=== PATIENT | female | born 2000 | race African-American/Black ===

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

== ENCOUNTER 2021-12-18 17:50 | Emergency (ER) | payer OTHER | END 2021-12-18 18:36 | disposition left against medical advice (07) | LOC: MADERS 17:50 | DX: Z53.21 Procedure and treatment not carried out due to patient leaving prior to being seen by health care provider (principal) ==

== ENCOUNTER 2021-12-19 09:07 | Emergency (ER) | payer OTHER ==
[2021-12-19] MEDS ORDERED: Ibuprofen 800 MG TAB ONE (09:51)
[2021-12-19] MEDS ORDERED: Dexamethasone 4 MG TAB ONE (09:51)
== END 2021-12-19 11:07 | disposition home or self-care (01) ==
LOC: MADERS 09:07
DX: U07.1 COVID-19 (principal); N76.0 Acute vaginitis
CPT/HCPCS: 87081; 87430; 87804; 99283; J8540; U0003; U0005

== ENCOUNTER 2021-12-26 15:36 | Emergency (ER) | payer OTHER | END 2021-12-26 16:41 | disposition home or self-care (01) | LOC: MADERS 15:36 | DX: U07.1 COVID-19 (principal); F17.210 Nicotine dependence, cigarettes, uncomplicated | CPT/HCPCS: 99283; U0003; U0005 ==

== ENCOUNTER 2024-03-19 11:00 | Emergency (ER) | payer SELFPAY ==
[2024-03-19] MEDS ORDERED: Erythromycin Base 0.5% Ophth Oint 3.5 gm Tube ONE (11:22)
== END 2024-03-19 11:35 | disposition home or self-care (01) ==
LOC: MADERS 11:00
DX: H10.9 Unspecified conjunctivitis (principal); F17.210 Nicotine dependence, cigarettes, uncomplicated
CPT/HCPCS: 99283

== ENCOUNTER 2024-06-11 23:11 | Emergency (ER) | payer SELFPAY ==
[2024-06-12] MEDS ORDERED: Lorazepam 2 MG/ML VIAL ONE (00:40)
[2024-06-12] MEDS ORDERED: Sodium Chloride 0.9% 1,000 ML ONE (00:40)
[2024-06-12] MEDS ORDERED: Famotidine/PF 20 mg/2ml Vial ONE (00:41)
[2024-06-12 01:01] LABS: Pregnancy Test - Urine (BHCG) Negative (Negative); Pregu Control Background? CLEAR/WHITE (CLR/WHITE); Pregu Control Bar Appear? YES (CONTROL BAR); Specific Gravity 1.025 (1.002-1.036)
[2024-06-12 01:11] LABS: #Basophils 0.1 thou/uL (0.0-0.2); #Eosinophils 0.2 thou/uL (0.0-0.7); #Monocytes 0.7 thou/uL (0.11-0.59); #Neutrophils 8.9 thou/uL (1.40-6.50); %Basophils 0.5 % (0.0-1.0); %Eosinophils 1.3 % (0.0-10.0); %Lymphocytes 29.1 % (21.0-51.0); %Monocytes 5.2 % (0.0-10.0); ALT (SGPT) 19 U/L (Less than 34); AST (SGOT) 42 U/L (11-34); Albumin 4.1 g/dL (3.1-4.5); Alkaline Phosphatase 73 U/L (40-110); Anion Gap 14 mmol/L (10-20); BUN (Urea Nitrogen) 13 mg/dL (7.0-18.7); Bilirubin, Total 0.1 mg/dL (0.3-1.2); Calc. Creatinine Clearance 0 mL/min (70-130); Calcium 9.6 mg/dL (7.8-10.44); Carbon Dioxide 21 mmol/L (22-29); Chloride 108 mmol/L (98-107); Estimated GFR 125; Globulin 3.6 g/dL (2.4-3.5); Glucose 97 mg/dL (70-105); Hematocrit 39.4 % (36.0-47.0); Mean Corpuscular Hemoglobin 30.6 pg (27.0-31.0); Mean Corpuscular Volume 92.8 fl (78.0-98.0); Mean Platelet Volume 7.3 fL (7.4-10.4); Platelet Count 359 10x3/uL (130-400); Potassium 3.8 mmol/L (3.5-5.1); Protein, Total 7.7 g/dL (6.0-8.3); RBC Distribution Width 11.6 % (11.5-14.5); Red Blood Cell (RBC) Count 4.24 mill/uL (4.20-5.40); Sodium 139 mmol/L (136-145); White Blood Cell (WBC) Count 13.8 10x3/uL (4.8-10.8)
[2024-06-12 02:00] LABS: Troponin I Less than 0.010 ng/mL (< 0.028)
== END 2024-06-12 02:17 | disposition home or self-care (01) ==
LOC: MADERS 23:11
DX: R07.89 Other chest pain (principal); F17.210 Nicotine dependence, cigarettes, uncomplicated
CPT/HCPCS: 36415; 71046; 80053; 81025; 83605; 83880; 84484; 85025; 85379; 87428; 96361; 96374; 96375; J2060; J3490; J7030

== ENCOUNTER 2024-09-03 01:18 | Emergency (ER) | payer SELFPAY | END 2024-09-03 01:41 | disposition home or self-care (01) | LOC: MADERS 01:18 | DX: S86.912A Strain of unspecified muscle(s) and tendon(s) at lower leg level, left leg, initial encounter (principal); F17.210 Nicotine dependence, cigarettes, uncomplicated; X58.XXXA Exposure to other specified factors, initial encounter | CPT/HCPCS: 99283 ==